=== PATIENT | female | born 1965 | race Caucasian/White ===

== ENCOUNTER → 2017-01-14 | Outpatient (CLI) | payer OTHER ==
[~2017-01-14] MED LIST: ALLEGRA180 MG PO; ASPIRINEC PO; CALCIUM 600 +1 EAC4 PO; ILOTYCIN1 GM OS; MAXALT5 MG PO; MOBIC PO; MUCINEX SINUS-1 EACH PO; PRILOSEC PO
--- NOTE | ~2017-01-14 | MY11 ---
[facility] A Service of [facility] RADIOLOGY TEXT RESULTS PATIENT: GEORGETTE BLOCK LOCATION: [facility] : 61 UNIT #: [id number] AGE: [address]: Dick Cummins MD SEX: F ORDER DR: [id number] [place] [id number] O MR#: [id number] Acc #: [id number] NAME: GEORGETTE BLOCK : 1965 SEX: F STUDY DATE/TIME: 01/14/2017 16:18 UNIT: [facility] ROOM: STUDY DESCRIPTION: MY Mammogram Screening Dig [place] Attending Physician: Dick Cummins M.D. Referring Physician: Dick Cummins M.D. Ordering Physician: Dick Cummins M.D. Primary Care Physician: Dick Cummins M.D. MEDICAL IMAGING REPORT This report is preliminary unless electronic signature is present. EXAM Screening mammogram, 01/14 INDICATIONS 52-year-old with no personal history but a positive family history of breast cancer. No current complaints. FINDINGS Routine digital screening views of both breasts were obtained. Study is reviewed with an FDA-approved CAD device. No comparison. Breast parenchyma is heterogeneously dense. No suspicious masses or microcalcifications are seen. There is an oil cyst in the upper left breast. IMPRESSION Benign mammogram. Routine screen in 1 year recommended. Patients over the age of 40 are entered into a reminder system with target due date for the next mammogram. A result letter will also be sent to the patient. BIRADS: 2 Benign Finding Dictated by... Gato Martinez Jr., M.D. THIS IS AN ELECTRONICALLY VERIFIED REPORT Gato Martinez Jr., M.D. at 01/15/2017 7:24 AM JAYK/luna [facility] A Service of [facility] RADIOLOGY TEXT RESULTS PATIENT: GEORGETTE BLOCK LOCATION: [facility] : 61 UNIT #: [id number] AGE: [address]: Dick Cummins MD SEX: F ORDER DR: TD: 01/14/2017 17:39 JOB #: [id number] MEDICAL IMAGING REPORT Page 1 of 1
== END | disposition home or self-care (01) ==
LOC: SMAM 15:46
DX: Z12.31 Encounter for screening mammogram for malignant neoplasm of breast (principal); Z87.891 Personal history of nicotine dependence
CPT/HCPCS: G0202

== ENCOUNTER → 2017-01-21 | Outpatient (CLI) | payer OTHER ==
--- NOTE | ~2017-01-21 | CT138 ---
[facility] A Service of [facility] RADIOLOGY TEXT RESULTS PATIENT: GEORGETTE BLOCK LOCATION: [facility] [[email or web address] : 61 UNIT #: [id number] AGE: [address]: Dick Cummins MD SEX: F ORDER DR: [id number] [address] [address] [id number] O MR#: [id number] Acc #: [id number] NAME: GEORGETTE BLOCK : 1965 SEX: F STUDY DATE/TIME: 01/21/2017 15:15 UNIT: [facility] [[email or web address] ROOM: STUDY DESCRIPTION: CT Lung screening initial Attending Physician: Dick Cummins M.D. Referring Physician: Dick Cummins M.D. Ordering Physician: Dick Cummins M.D. Primary Care Physician: Dick Cummins M.D. MEDICAL IMAGING REPORT This report is preliminary unless electronic signature is present. EXAM Lung cancer screening CT scan INDICATIONS Previous smoker, quit a few months ago. TECHNIQUE Low-dose technique was utilized and axial 2-mm images were obtained through the chest. The CTDI volume is 2.96 mGy and the DLP is 111 mGy-cm. This CT exam was performed with one or more of the following radiation dose reduction techniques: Automatic exposure control, adjustment of mA and/or kV according to patient size, and iterative reconstruction. FINDINGS The lungs are clear. The thyroid gland is normal. The aorta is normal in size. There is no mediastinal or hilar adenopathy. There is a large hiatal hernia. Visualized portions of the upper abdomen are otherwise normal. The bones are unremarkable. IMPRESSION 1. Large hiatal hernia. 2. No pulmonary nodules are identified. 3. Lung-RADS category 1-S. Dictated by... Alex Kyle M.D. THIS IS AN ELECTRONICALLY VERIFIED REPORT Alex Kyle M.D. at 01/22/2017 9:44 AM FEL/psc [facility] A Service of [facility] RADIOLOGY TEXT RESULTS PATIENT: GEORGETTE BLOCK [id number] 61 UNIT #: [id number] AGE: [address]: Dick Cummins MD SEX: F ORDER DR: TD: 01/21/2017 20:23 JOB #: [id number] MEDICAL IMAGING REPORT Page 1 of 1
== END | disposition home or self-care (01) ==
LOC: SCT 15:07
DX: Z87.891 Personal history of nicotine dependence (principal); K44.9 Diaphragmatic hernia without obstruction or gangrene
CPT/HCPCS: G0297

== ENCOUNTER → 2017-03-15 | Day surgery (SDC) | payer OTHER ==
--- NOTE | ~2017-03-15 | OR ---
Unit #: [id number] #: [id number] Patient: GEORGETTE BLOCK [id number] [address] [address] [id number] O MR#: [id number] NAME: GEORGETTE BLOCK ROOM: Date of Procedure: 03/15/2017 Admission Date: 03/15/2017 Surgeon: Nolan Cash M.D. : 1965 Attending Physician: Nolan Cash M.D. Primary Care Physician: Dick Cummins M.D. OPERATIVE REPORT PRIMARY CARE PHYSICIAN Dick Cummins M.D. PREOPERATIVE DIAGNOSES The patient presented with a history of refractory gastroesophageal reflux. It is noteworthy she gets daytime as well as significant nighttime symptoms as well as postural related reflux. She only is taking 20 mg of Prilosec once a day. In addition, she needs a screening colonoscopy. PROCEDURES PERFORMED Upper gastrointestinal endoscopy and biopsy as well as colonoscopy with polypectomy. POSTOPERATIVE DIAGNOSES For upper endoscopy: 1. The patient had moderately severe grade 2 to 3 distal ulcerative esophagitis with linear erosions and ulcers ascending above the Z-line in the distal esophagus. 2. 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 These were biopsied. 3. Medium-sized hiatus hernia. 4. Rest of the examination up to third part of duodenum was normal. For colonoscopy: 1. The patient had 2 sessile polyps, one each in the proximal ascending colon and proximal sigmoid colon. These were 6 mm and 8 mm each. Both were removed using snare polypectomy, retrieved and sent for histology. 2. Sigmoid and descending colon moderate diverticulosis. 3. Rest of the examination up to cecum and terminal ileum was normal. The quality of the prep was excellent. RECOMMENDATIONS 1. Follow up results of polyp histology and repeat colonoscopy in 5 years. 2. Omeprazole 40 mg p.o. b.i.d. 3. Follow up in the office in 3 months' time. SEDATION USED MAC. DESCRIPTION OF PROCEDURE Following detailed explanation of potential risks and complications of upper endoscopy and a colonoscopy, namely perforation, bleeding, and Unit #: [id number] #: [id number] Patient: GEORGETTE BLOCK complications related to sedation, the patient was brought to GI lab and laid in the left lateral decubitus position. Lubricated tip of the Olympus video upper endoscope was passed through the bite block into the proximal esophagus under direct vision. The entire esophageal mucosa was examined and the patient was noted to have evidence of moderately severe distal ulcerative esophagitis. 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 A medium-sized hiatus hernia was also noted. The scope was then advanced into the gastric cavity and the latter was insufflated. Mucosa of the fundus, body, and antrum was examined and appeared unremarkable. Pylorus was intubated with visualization of the normal duodenal bulb and second and third part of the duodenum. Upon withdrawal and retroflexion, incisura, cardia, and greater curve were examined and previously noted hiatus hernia was again seen. The scope was then withdrawn into the distal esophagus. Biopsy was obtained from the squamocolumnar junction from the tongues of columnar mucosa in the distal esophagus and sent for histology to look for any evidence of intestinal metaplasia. The entire esophageal mucosa was examined all the way up to pharynx. No additional findings noted. The scope was then withdrawn all the way up to pharynx. No additional findings were noted. The examination table was then turned by 180 degrees and the patient was positioned for a colonoscopy. A digital rectal examination was performed, which was normal. Lubricated tip of the Olympus video colonoscope was inserted through the anus and advanced under direct vision. The scope was advanced and passed up to sigmoid into descending colon. Multiple small to medium size diverticula were noted in this area. The scope tip was then navigated all the way up to cecum with visualization of the ileocecal valve and the appendiceal orifice. Preparation was excellent with good visualization and photodocumentation was obtained. Last several inches of the terminal ileum also visualized after intubation of the ileocecal valve and appeared normal. Successive segments of the colonic mucosa were examined upon withdrawal. The patient was noted to have a sessile polyp in the proximal ascending colon. This was about 6 mm in size. It was removed using snare polypectomy. A second polyp about 8 mm in size was also noted in the proximal sigmoid colon. Both the polyps were removed using snare polypectomy, retrieved and sent for histology. Excellent hemostasis was achieved and photodocumentation was obtained. No additional polyps noted. Other than the left-sided diverticula, no additional abnormalities were found. The patient did not have any hemorrhoids at anal verge. The scope was then withdrawn. The patient returned to the recovery area. She tolerated the procedure without any postprocedure complications. Dictated byTiera Michelle/howie TD: 03/15/2017 08:27 JOB #: [id number] Unit #: [id number] #: [id number] Patient: GEORGETTE BLOCKELL OPERATIVE REPORT Page 1 of 1 X Nolan Cash MD X PROCEDURE OPERATIVE NOTE
== END | disposition home or self-care (01) ==
LOC: COPS 06:17
DX: Z12.11 Encounter for screening for malignant neoplasm of colon (principal); D12.5 Benign neoplasm of sigmoid colon; K63.5 Polyp of colon; K21.0 Gastro-esophageal reflux disease with esophagitis; K44.9 Diaphragmatic hernia without obstruction or gangrene; K57.30 Diverticulosis of large intestine without perforation or abscess without bleeding; F17.210 Nicotine dependence, cigarettes, uncomplicated; Z90.710 Acquired absence of both cervix and uterus; Z98.51 Tubal ligation status; Z88.6 Allergy status to analgesic agent; Z88.8 Allergy status to other drugs, medicaments and biological substances; Z91.041 Radiographic dye allergy status; Z79.1 Long term (current) use of non-steroidal anti-inflammatories (NSAID)
CPT/HCPCS: 88305; J2250